=== PATIENT | male | born 1980 ===

== ENCOUNTER 2018-07-19 01:45 | Inpatient (IN) | payer OTHER ==
--- NOTE | 2018-07-19 02:27 | ED PDOC ---
HPI: Psych/Substance Abuse Time Seen by Provider: 07/19/18 02:00 Chief Complaint (Nursing): Psychiatric Evaluation Chief Complaint (Provider): Bipolar disorder History Per: EMS, Family History/Exam Limitations: clinical condition Additional Complaint(s): 37yo male, history of bipolar disorder, brought to ER by EMS for evaluation as patient noted to be agitated. Per EMS, patient's father reported patient was manic and has been non-compliant with his medication and has not been sleeping. Full HPI and ROS limited due to patient's presentation. Past Medical History Reviewed: Historical Data, Nursing Documentation, Vital Signs Vital Signs: Last Vital Signs Temp 98.2 F 07/19/18 01:57 Pulse 104 H 07/19/18 01:57 Resp 20 07/19/18 01:57 BP 176/105 H 07/19/18 01:57 Pulse Ox 99 07/19/18 01:57 - Medical History PMH: Bipolar Disorder - Surgical History Surgical History: No Surg Hx - Family History Family History: States: No Known Family Hx - Home Medications Home Medications: Ambulatory Orders Medication Instructions Recorded Levothyroxine Sodium [Unithroid] 50 mcg PO DAILY 07/19/18 [place] Carbonate [[place] 300 mg PO QID 07/19/18 Carbonate 300MG] Valproic Acid [Depakene] 250 mg PO QID 07/19/18 - Allergies Allergies/Adverse Reactions: Allergies Allergy/AdvReac Type Severity Reaction Status Date / Time No Known Allergies Allergy Verified 07/19/18 01:59 Review of Systems Review Of Systems: ROS cannot be obtained secondary to pt's inabilty to answer questions. Physical Exam - Reviewed Nursing Documentation Reviewed: Yes Vital Signs Reviewed: Yes - Physical Exam Head Exam: Positive for: ATRAUMATIC, NORMAL INSPECTION, NORMOCEPHALIC Skin: Positive for: Normal Color Eye Exam: Positive for: Normal appearance Neck: Positive for: Supple Cardiovascular/Chest: Positive for: Regular Rate, Rhythm, Tachycardia Respiratory: Positive for: Normal Breath Sounds Extremity: Positive for: Normal ROM. Negative for: Pedal Edema Neurologic/Psych: Positive for: Alert - Laboratory Results Result Diagrams: 07/19/18 03:01 07/19/18 03:01 - ECG O2 Sat by Pulse Oximetry: 99 (RA) Pulse Ox Interpretation: Normal Medical Decision Making Medical Decision Making: Impression: Psychiatric evaluation -- Patient noted to be aggressive and agitated; patient given Haldol 5mg IM and Ativan 2mg IM for agitation relief. Patient placed in 4-patient restraint due to possibility of harm to self/staff. 04:23 Labs reviewed and show no clinically significant abnormalities. 05:54 Chest x-ray reviewed with no active disease. 06:08 Patient with persistent agitation, Ativan 2mg IM given. Restraints orders renewed. 07:00 Patient signed out to Dr. Hall pending UDS, Urinalysis, and crisis evaluation. Scribe Attestation: Documented by Cheryl Woods, acting as a scribe for Raymond Park MD. Provider Scribe Attestation: All medical record entries made by the Scribe were at my direction and personally dictated by me. I have reviewed the chart and agree that the record accurately reflects my personal performance of the history, physical exam, medical decision making, and the department course for this patient. I have also personally directed, reviewed, and agree with the discharge instructions and disposition. Disposition - Patient ED Disposition Is Patient to be Admitted: Transfer of Care - Disposition Disposition: Transfer of Care Disposition Time: 07:00 Condition: STABLE Forms: [employer] (Algerian) Patient Signed Over To: Adrian Hall
[2018-07-19 03:05] LABS: BASO # 0.1 K/uL (0.0-0.2); BASO % 0.6 % (0.0-2.0); EOS % 0.3 % (0.0-4.0); LYMPH # 0.9 K/uL (1.0-4.3); LYMPH % 10.5 % (20.0-40.0); MEAN CELL VOLUME 87.3 fl (80.0-94.0); MEAN CORPUSCULAR HEMOGLOBIN 29.9 pg (27.0-31.0); MEAN CORPUSCULAR HGB CONC 34.3 g/dL (33.0-37.0); MEAN PLATELET VOLUME 9.3 fl (7.2-11.7); MONO # 0.6 K/uL (0.0-0.8); MONO % 7.2 % (0.0-10.0); NEUT # 7.1 K/uL (1.8-7.0); NEUT % 81.4 % (50.0-75.0); NRBC % 0.2 % (0.0-0.0); RBC 4.69 Mil/uL (4.40-5.90); RED CELL DISTRIBUTION WIDTH 14.7 % (11.5-14.5); WHITE BLOOD COUNT 8.7 K/uL (4.8-10.8)
[2018-07-19 03:13] LABS: ACETAMINOPHEN < 10.0 ug/ml (10.0-30.0); ALB/GLOB RATIO 1.3 (1.0-2.1); ALBUMIN 3.9 g/dL (3.5-5.0); ALT/SGPT 43 U/L (21-72); AST/SGOT 38 U/L (17-59); BLOOD UREA NITROGEN 19 mg/dl (9-20); CALCIUM 9.4 mg/dL (8.4-10.2); GFR NON-AFRICAN AMERICAN > 60; SALICYLATE < 1.0 mg/dl
--- NOTE | 2018-07-19 07:13 | ED PDOC ---
- Laboratory Results Result Diagrams: 07/19/18 03:01 07/19/18 03:01 - ECG O2 Sat by Pulse Oximetry: 99 (RA) Pulse Ox Interpretation: Normal Medical Decision Making Medical Decision Makin Patient endorsed to me by Dr. Park pending crisis evaluation. Medically stable for psychiatric admission Disposition - Clinical Impression Clinical Impression: Depression - POA Present On Arrival: None - Disposition Disposition: Admitted as In-Patient Disposition Time: 16:18 Condition: FAIR Forms: [employer] (Thai)
[2018-07-19 07:58] LABS: SQUAMOUS EPITHIAL < 1 /hpf (0-5); URINE BILIRUBIN NEGATIVE (NEGATIVE); URINE BLOOD NEGATIVE (NEGATIVE); URINE CLARITY CLEAR (Clear); URINE COLOR STRAW (YELLOW); URINE GLUCOSE (UA) NEG (Normal); URINE LEUKOCYTE ESTERASE NEG Leu/uL (Negative); URINE PROTEIN NEGATIVE (NEGATIVE); URINE UROBILINOGEN 0.2-1.0 mg/dL (0.2-1.0)
[2018-07-19 08:17] LABS: BARBITURATES, UR NEGATIVE (NEGATIVE); BENZODIAZEPINES, UR NEGATIVE (NEGATIVE); OPIATES, UR NEGATIVE (NEGATIVE); PHENCYCLIDINE, UR NEGATIVE (NEGATIVE)
--- NOTE | 2018-07-19 10:59 | RAD ---
Date of service: 07/19/2018 HISTORY: cough COMPARISON: Comparison made with prior study 07/19/2018. FINDINGS: LUNGS: Poor inspiration with low lung volumes, crowded bronchovascular markings and mild bibasilar atelectasis left greater than right.. Developing left lower lobe infiltrate could be excluded with followup radiographs. PLEURA: No significant pleural effusion identified, no pneumothorax apparent. CARDIOVASCULAR: Normal. OSSEOUS STRUCTURES: No significant abnormalities. VISUALIZED UPPER ABDOMEN: Normal. OTHER FINDINGS: None. IMPRESSION: Poor inspiration with low lung volumes, crowded bronchovascular markings and mild bibasilar atelectasis left greater than right.. Developing left lower lobe infiltrate could be excluded with followup radiographs.
--- NOTE | 2018-07-19 11:35 | RAD ---
Date of service: 07/19/2018 HISTORY: clearance COMPARISON: No prior. FINDINGS: LUNGS: No active pulmonary disease. PLEURA: No significant pleural effusion identified, no pneumothorax apparent. CARDIOVASCULAR: Normal. OSSEOUS STRUCTURES: No significant abnormalities. VISUALIZED UPPER ABDOMEN: Normal. OTHER FINDINGS: None. IMPRESSION: No active disease.
--- NOTE | 2018-07-19 13:53 | CARD ---
APPROVED REPORT Date of service: 07/19/2018 EKG Measurement Heart [id number] <Conclusion> Normal sinus rhythm with sinus arrhythmia otherwise normal ECG
[2018-07-19 16:50] VITALS: O2SAT 98
[2018-07-19] MEDS ORDERED: Magnesium Hydroxide Susp 30 ml UD PO PRN (18:37)
[2018-07-19] MEDS ORDERED: Alum-Mag Hydrox-Simethicone Susp (30 mL) PO PRN (18:37)
[2018-07-19] MEDS ORDERED: DiphenhydrAMINE 50 mg/ml Inj IM PRN (18:37)
[2018-07-19] MEDS: Divalproex 500 mg DR(BID formulation) PO SCH (21:05)
[2018-07-20] MEDS: Levothyroxine 50 MCG TAB PO SCH (05:43)
[2018-07-20 08:47] LABS: T4 5.67 ug/dl (5.5-11.0)
--- NOTE | 2018-07-20 12:51 | PCM.PSYCH ---
Initial Psychiatric Evaluation - Initial Psychiatric Evaluation Type of Admission: Voluntary Legal Status: Capacity Chief Complaint (in patient's own words): Acute louis/ paranoia; "My life is like a movie, look for me on youtube." Patient's Reaction to Hospitalization: HPI: 37 yo male/ w/ h/o Bipolar disorder, referred by [facility], for worsening louis, disorganized speech/thoughts and paranoia. Patient is a poor historian at this time due to acute disorganization and his insistence on discussing his paranoid ideations, including that he can't use his name because of something that is on youtube, his belief that drug traffickers in [facility] have killed his family members, that his family wants him to take psychiatric medications so they can take his money and grandiose beliefs that he is connected with important people such a Arlene and J Lety. He denied AH/VH/SI/ HI. He was tearful and labile on interview. 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; denies drugs/etoh/cig use Current Medications: Active Medications Generic Name Dose Route Start Last Admin Trade Name Freq PRN Reason Stop Dose Admin Acetaminophen 650 mg 07/19/18 18:37 Tylenol 325mg Tab PO Q4 PRN Pain, moderate (4-7) Al Hydrox/Mg Hydrox/Simethicone 30 ml 07/19/18 18:37 Maalox Plus 30 Ml PO Q4 PRN Dyspepsia Diphenhydramine HCl 50 mg 07/19/18 18:37 Benadryl IM Q6 PRN Extrapyramidal S/S Unable PO Diphenhydramine HCl 50 mg 07/19/18 18:37 Benadryl PO Q6 PRN Extrapyramidal Symptoms Divalproex Sodium 500 mg 07/21/18 09:00 Fermin Quinones(*Bid*) PO DAILY [place] Divalproex Sodium 750 mg 07/20/18 17:00 Fermin Quinones(*Bid*) PO DAILY@1700 [place] Haloperidol 5 mg 07/19/18 18:37 Haldol PO Q4 PRN Agitation Haloperidol Lactate 5 mg 07/19/18 18:37 Haldol IM Q4 PRN Agitation, Unable to Take PO Levothyroxine Sodium 50 mcg 07/20/18 06:30 07/20/18 05:43 Synthroid PO 50 mcg DAILY@0630 [place] Administration Lorazepam 2 mg 07/19/18 18:37 07/19/18 23:34 Ativan PO 2 mg Q4 PRN Administration Anxiety/Agitation Magnesium Hydroxide 30 ml 07/19/18 18:37 Milk Of Magnesia PO HS PRN Constipation Risperidone 1 mg 07/20/18 21:00 Risperdal M-Tab PO Q12 [place] Past Psychiatric History - Past Psychiatric History Previous Treatment History: Inpatient Pertinent Medical Hx (Current Medical&Sleep Prob, Allergies): Allergies Allergy/AdvReac Type Severity Reaction Status Date / Time No Known Allergies Allergy Verified 07/19/18 01:59 Levothyroxine Sodium [Unithroid] 50 mcg PO DAILY 07/19/18 [place] Carbonate [[place] Carbonate 300MG] 300 mg PO QID 07/19/18 Valproic Acid [Depakene] 250 mg PO QID 07/19/18 Review of Systems - Psychiatric Psychiatric: As Per HPI, Abnormal Sleep Pattern, Anxiety, Behavioral Changes, Change in Appetite, Depression, Difficulty Concentrating Mental Status Examination - Personal Presentation Personal Presentation: Looks stated age - Affect Affect: Other (Labile) - Motor Activity Motor Activity: Psychomotor Agitation - Reliability in Providing Information Reliability in Providing Information: Poor, due to alteration in thoughts - Speech Speech: Disorganized, Irrelevant, Tangential - Mood Mood: Euphoric - Formal Thought Process Formal Thought Process: Delusions, Paranoia, Loosening of associations, Flight of ideas, Circumstantial - Hallucinations/Delusions Additional comments: Denies AH/VH - Obsessions/Compulsions Obsessions: No Compulsions: No - Cognitive Functions Orientation: Person, Place, Situation, Time Sensorium: Alert Attention/Concentration: Attentive Estimate of Intelligence: Average Judgement: Imparied, as evidence by: Poor judgement, Imparied, as evidence by: Lack of insight into illness Memory: Recent impaired, as evidenced by: Other (Poor memory due to acute disorganization) - Risk Risk: Diminished functioning - Strength & Assets Inventory Strength & Assets Inventory: Family support DSM 5 DX - DSM 5 DSM 5 Diagnosis: Bipolar Disorder w/ Psychotic Features vs Schizoaffective Disorder - Recommended/Plan of Treatment Treatment Recommendations and Plan of Treatment: Bipolar Disorder w/ Psychotic Features vs Schizoaffective Disorder -Admit to psychiatry unit -Start Depakote and Risperdal -Individual and group therapy -Medicine consult -Obtain collateral history -Disposition planning Projected ELOS: 7-10 days Discharge Plan and Discharge Criteria: Discharge when patient is psychiatrically stable - Smoking Cessation Smoking Cessation Initiated: No Reason for not providing: Not indicated
[2018-07-20] MEDS: Divalproex 500 mg DR(BID formulation) PO SCH ×3 (12:57→21:45)
--- NOTE | 2018-07-20 13:43 | CP.PCM.CON ---
History of Present Illness - History of Present Illness History of Present Illness: Reason for Consult: per hospital protocol HPI: 37 year old male PMH bipolar disorder, noncomplaint with medications, does not admit to any other chronic medical issues, is admitted to psych for bipolar disorder with psychotic features. HD stable, no acute distress. ROS: per HPI all other systems reviewed and negative. Past Patient History - Past Social History Smoking Status: Never Smoked - CARDIAC Hx Cardiac Disorders: No - PULMONARY Hx Tuberculosis: No - NEUROLOGICAL HX Cerebrovascular Accident: No Hx Seizures: No - ENDOCRINE/METABOLIC Hx Hyperthyroidism: Yes - HEMATOLOGICAL/ONCOLOGICAL Hx Cancer: No Hx Human Immunodeficiency Virus (HIV): No - GENITOURINARY/GYNECOLOGICAL Hx Sexually Transmitted Disorders: No - PSYCHIATRIC Hx Anxiety: Yes Hx Bipolar Disorder: Yes Hx Depression: Yes Hx Substance Use: No Meds Allergies/Adverse Reactions: Allergies Allergy/AdvReac Type Severity Reaction Status Date / Time No Known Allergies Allergy Verified 07/19/18 01:59 - Medications Medications: Current Medications Acetaminophen (Tylenol 325mg Tab) 650 mg PO Q4 PRN PRN Reason: Pain, moderate (4-7) Al Hydrox/Mg Hydrox/Simethicone (Maalox Plus 30 Ml) 30 ml PO Q4 PRN PRN Reason: Dyspepsia Diphenhydramine HCl (Benadryl) 50 mg IM Q6 PRN PRN Reason: Extrapyramidal S/S Unable PO Diphenhydramine HCl (Benadryl) 50 mg PO Q6 PRN PRN Reason: Extrapyramidal Symptoms Divalproex Sodium (Depakote Dr(*Bid*)) 500 mg PO DAILY [facility] Divalproex Sodium (Depakote Dr(*Bid*)) 750 mg PO DAILY@1700 [facility] Haloperidol (Haldol) 5 mg PO Q4 PRN PRN Reason: Agitation Haloperidol Lactate (Haldol) 5 mg IM Q4 PRN PRN Reason: Agitation, Unable to Take PO Levothyroxine Sodium (Synthroid) 50 mcg PO DAILY@0630 [facility] Last Admin: 07/20/18 05:43 Dose: 50 mcg Lorazepam (Ativan) 2 mg PO Q4 PRN PRN Reason: Anxiety/Agitation Last Admin: 07/19/18 23:34 Dose: 2 mg Magnesium Hydroxide (Milk Of Magnesia) 30 ml PO HS PRN PRN Reason: Constipation Risperidone (Risperdal M-Tab) 1 mg PO Q12 [place] Physical Exam - Constitutional Appears: Well, Non-toxic - Head Exam Head Exam: ATRAUMATIC, NORMAL INSPECTION, NORMOCEPHALIC - Eye Exam Eye Exam: EOMI, Normal appearance, PERRL Pupil Exam: NORMAL ACCOMODATION, PERRL - ENT Exam ENT Exam: Mucous Membranes Moist, Normal Exam - Neck Exam Neck exam: Positive for: Full Rom, Normal Inspection - Respiratory Exam Respiratory Exam: Clear to Auscultation Bilateral, NORMAL BREATHING PATTERN - Cardiovascular Exam Cardiovascular Exam: REGULAR RHYTHM, RRR, +S1, +S2 - GI/Abdominal Exam GI & Abdominal Exam: Normal Bowel Sounds, Soft. absent: Tenderness - Extremities Exam Extremities exam: Positive for: normal capillary refill, pedal pulses present - Back Exam Back exam: absent: CVA tenderness (L), CVA tenderness (R) - Neurological Exam Neurological exam: Alert, Reflexes Normal - Psychiatric Exam Psychiatric exam: Normal Affect, Normal Mood - Skin Skin Exam: Dry, Warm Results - Vital Signs Recent Vital Signs: Last Vital Signs Temp 96.4 F L 07/20/18 09:00 Pulse 87 07/20/18 09:00 Resp 18 07/20/18 09:00 BP 130/94 H 07/20/18 09:00 Pulse Ox 98 07/19/18 16:49 - Labs Result Diagrams: 07/19/18 03:01 07/19/18 03:01 Labs: Laboratory Results - last 24 hr 07/20/18 06:30 Triglycerides 81 Cholesterol 182 LDL Cholesterol Direct 104 HDL Cholesterol 48 Thyroxine (T4) 5.67 TSH 3rd Generation 19.10 H Assessment & Plan - Assessment and Plan (Free Text) Plan: 37 year old male PMH bipolar disorder, noncomplaint with medications, does not admit to any other chronic medical issues, is admitted to psych for bipolar disorder with psychotic features. HD stable, no acute distress. Bipolar I with psychotic features - management per psychiatry team
[2018-07-20] MEDS: guaiFENesin 200 mg/10 ml Syrup UD PO PRN (17:02)
[2018-07-20] MEDS: Divalproex 250 mg DR(BID formulation) PO SCH (17:04)
--- NOTE | 2018-07-20 19:33 | PCM.BM ---
<Herbert Brandon - Last Filed: 07/20/18 19:31> Treatment Plan Problems - Problems identified on initial assessmt Hopelessness/Helplessness Date Initiated: 07/20/18 Time Initiated: 19:00 Assessment reference: BASILIA Treatment assets and liabiliti Patient Assests: adapts well, cooperative, ADL independent, physically healthy Patient Liabilities: poor support system - Milieu Protocol Maintain good personal hygiene: every shift Encourage regular showers, every shift Remind patient to perform daily oral care, every shift Assist patient to perform ADL's Maintain personal safety: every shift Educate patient to report safety concerns to staff, every shift Monitor environment for contraband/sharps Medication safety: Monitor for expected outcome, potential side effects: every shift, Assess barriers to learning: every shift, Assess readiness for medication education: every shift Milieu Narrative: Bipolar Disorder w/ Psychotic Features vs Schizoaffective Disorder -Admit to psychiatry unit -Start Depakote and Risperdal -Individual and group therapy -Medicine consult -Obtain collateral history -Disposition planning Discharge/Continuing Care - Treatment Team Participation Patient/Family/SO Statement: Bipolar Disorder w/ Psychotic Features vs Schizoaffective Disorder -Admit to psychiatry unit -Start Depakote and Risperdal -Individual and group therapy -Medicine consult -Obtain collateral history -Disposition planning <Brandee Lujan - Last Filed: 07/23/18 14:03> - Diagnosis (1) Loius Status: Acute Interventions: pharmacotherapy psychotherapy 07/22/18 14:27 <Farzana Quispe - Last Filed: 07/25/18 14:59> Treatment assets and liabiliti Patient Assests: adapts well, cooperative, insightful, motivated, resourceful, self-reliant, ADL independent, physically healthy, good support system, negotiates basic needs, good past tx response, cognitively intact, good interpersonal skills Family Contact Family involvement: Family/SO is involved Family contact: Patient agrees to contact, Family has been contacted by patient, Telephone contact initiated by staff Family contact comment: Genetic Supervisor placed call to pts father (Moise [phone]) on 07/25 to discuss pts progress on 3NP and anticipated discharge. Genetic Supervisor provided clinical updates regarding pts progress and emphasized importance of continued adherence with aftercare. Pts father expressed understanding of the above and denies having any concerns regarding pts discharge. Patient to contact father from payphone when ready to be picked-up. Staff notified. - Goals for Treatment Patient goals for treatment: Patient to continue stabilization on 3NP through medication management and group/supportive therapy to address sxs of louis as exhibited by restlessness, racing thoughs and poor sleep. Patient to be encouraged to attend groups regularly to promote self-awareness, self-esteem, and improve insight, compliance, and coping skills. Patient to be provided with referral for appropriate level of aftercare to reduce risk of future hospitalizations and ensure safety in the community. Discharge/Continuing Care - Education Needs Education Needs: Family Medication, Family Coping Skills, Family Aftercare Safety Plan, Patient Medication, Patient Diagnosis/Disease Process, Patient Coping Skills, Patient Anger Management skills, Patient Community resources, Patient Aftercare Safety Plan - Discharge Discharge Criteria: Tolerates medication w/o severe side effects, Normal sleep pattern, Ability to care for self, Reduction of target symptoms Discharge to:: Home, With Family, Other ([facility]) - Treatment Team Participation Discussed with Family/SO: Yes Was Patient/Family/SO present at Treatment Team Meeting: Yes
[2018-07-20] MEDS: Risperidone M tab 1 MG PO SCH (21:44)
[2018-07-21] MEDS: Levothyroxine 50 MCG TAB PO SCH (06:25)
[2018-07-21] MEDS: Divalproex 500 mg DR(BID formulation) PO SCH (09:00)
[2018-07-21] MEDS: Risperidone M tab 1 MG PO SCH ×2 (09:00→21:19)
--- NOTE | 2018-07-21 10:23 | PCM.PYCHPN ---
Psychiatric Progress Note - Psychiatric Progress Note Patient seen today, length of contact: Pt evaluated, case discussed w/ team, chart reviewed Patient Chief Complaint: Acute louis/ paranoia Problems Identified/Issues Discussed: Patient continues to be manic, w/ pressured speech, psychomotor agitation and disorganized thought process and paranoia. He could not sit down during the interview w/ the mortgage underwriter and was pacing the room, acting out how [place] are different than Americans. He has poor insight and judgment, states he feels "super" and does not believe he needs to be in the hospital. Medication Change: Yes (Increase Risperdal) Medical Record Reviewed: Yes Consults ordered or reviewed: Medicine consult Mental Status Examination - Cognitive Function Orientation: Person, Place, Situation, Time Memory: Intact Attention: Poor Concentration: Poor Association: Loose Decription of patient's judgement and insights: Poor I/J - Mood Mood: Euphoric - Affect Affect: Other (Labile) - Speech Speech: Pressured - Formal Thought Process Formal Thought Process: Delusions, Paranoia, Loosening of associations, Flight of ideas, Circumstantial Psychotic Thoughts and Behaviors: +Paranoia - Suicidal Ideation Suicidal Ideation: No - Homicidal Ideation Homicidal Ideation: No Goal/Treatment Plan - Goal/Treatment Plan Need for Continued Stay: Remain at risks for inpatient hospitalization, Discharge may exacerbated symptoms Progress Toward Problem(s) and Goals/Treatment Plan: Bipolar Disorder w/ Psychotic Features vs Schizoaffective Disorder -Continue Depakote and Risperdal -Individual and group therapy -Medicine consult -Obtain collateral history -Disposition planning Estimated Date of D/C: 07/26/18
[2018-07-21] MEDS: guaiFENesin 200 mg/10 ml Syrup UD PO PRN ×2 (11:14→17:00)
[2018-07-21] MEDS: Divalproex 250 mg DR(BID formulation) PO SCH (17:00)
[2018-07-22] MEDS: Levothyroxine 50 MCG TAB PO SCH (06:39)
[2018-07-22] MEDS: Divalproex 500 mg DR(BID formulation) PO SCH ×2 (08:52→21:01)
[2018-07-22] MEDS: Risperidone M tab 1 MG PO SCH ×2 (08:52→21:01)
--- NOTE | 2018-07-22 15:01 | PCM.PYCHPN ---
Psychiatric Progress Note - Psychiatric Progress Note Patient seen today, length of contact: Pt evaluated, case discussed w/ team, chart reviewed Patient Chief Complaint: If I do not sleep I become sick Problems Identified/Issues Discussed: pt evaluated with treatment team , presentic with elevated mood, overproductive speech , continues to be hypomanic with increased energy, observed pacing in the hallway, pt has been requesting discharge, discussed the need to increase depakote and to follow up on depakote level, encouraged pt to attend groups, pt denied any current suicidal or homicidal ideation, denied perceptual disturbances , no reported side effects of medications DSM 5 Symptoms Update: bipolar I disorder MRE manic severe Medication Change: Yes (increase depakote) Medical Record Reviewed: Yes Mental Status Examination - Cognitive Function Orientation: Person, Place, Situation, Time Memory: Intact Attention: WNL Concentration: WNL Association: WNL Fund of Knowledge: WNL Decription of patient's judgement and insights: partial insight and fair judgment - Mood Mood: Euphoric - Affect Affect: Broad, Other (Labile) - Speech Speech: Loud, Pressured - Formal Thought Process Formal Thought Process: Paranoia, Circumstantial - Suicidal Ideation Suicidal Ideation: No - Homicidal Ideation Homicidal Ideation: No Goal/Treatment Plan - Goal/Treatment Plan Need for Continued Stay: Remain at risks for inpatient hospitalization, Discharge may exacerbated symptoms Progress Toward Problem(s) and Goals/Treatment Plan: increase depakote to 1500mg daily , follow up on depakote level continue with risperidone CBT group and supportive therapy Estimated Date of D/C: 07/26/18
[2018-07-23] MEDS: Levothyroxine 50 MCG TAB PO SCH (06:35)
--- NOTE | 2018-07-23 14:13 | PCM.PYCHPN ---
Psychiatric Progress Note - Psychiatric Progress Note Patient seen today, length of contact: Pt evaluated, case discussed w/ team, chart reviewed Patient Chief Complaint: I am feeling better Problems Identified/Issues Discussed: pt evaluated , pleasant, cooperative , speech less pressured, continues to have increased energy and increase goal directed activities , reported improved sleep with the increase in depakote , no reported side effects of medications, requ esting referral to therapy on discharge pt denied any current suicidal or homicidal ideation, denied perceptual disturbances , no psychotic symptoms elicited ,no reported side effects of medications DSM 5 Symptoms Update: bipolar I disorder manic severe Medication Change: No (increase depakote) Medical Record Reviewed: Yes Mental Status Examination - Cognitive Function Orientation: Person, Place, Situation, Time Memory: Intact Attention: WNL Concentration: WNL Association: WNL Fund of Knowledge: [facility] Decription of patient's judgement and insights: partial insight and fair judgment - Mood Mood: Euphoric - Affect Affect: Broad, Other (Labile) - Speech Speech: Loud, Pressured - Formal Thought Process Formal Thought Process: Circumstantial Psychotic Thoughts and Behaviors: pt denied perceptual disturbances, non elicited - Suicidal Ideation Suicidal Ideation: No - Homicidal Ideation Homicidal Ideation: No Goal/Treatment Plan - Goal/Treatment Plan Need for Continued Stay: Remain at risks for inpatient hospitalization, Discharge may exacerbated symptoms Progress Toward Problem(s) and Goals/Treatment Plan: continue depakote 1500mg daily , follow up on depakote level continue with risperidone 1 mg bid CBT group and supportive therapy Estimated Date of D/C: 07/26/18
[2018-07-23] MEDS: Risperidone M tab 1 MG PO SCH (21:27)
[2018-07-23] MEDS: Divalproex 500 mg DR(BID formulation) PO SCH (21:27)
[2018-07-24] MEDS: Levothyroxine 50 MCG TAB PO SCH (06:32)
[2018-07-24] MEDS: Divalproex 500 mg DR(BID formulation) PO SCH ×3 (08:38→21:11)
[2018-07-24] MEDS: Risperidone M tab 1 MG PO SCH ×2 (08:39→21:11)
[2018-07-24] MEDS: guaiFENesin DM 200 mg-20 mg/10 ml UD PO PRN ×2 (08:40→21:34)
--- NOTE | 2018-07-24 18:51 | PCM.PYCHPN ---
Psychiatric Progress Note - Psychiatric Progress Note Patient seen today, length of contact: Pt evaluated, case discussed w/ team, chart reviewed Patient Chief Complaint: I am feeling better Problems Identified/Issues Discussed: pt evaluated ,reported mood better, affect less labile , speech less pressured, , reported improved sleep , no reported side effects with the increase in depakote , pt denied any current suicidal or homicidal ideation, denied perceptual disturbances , no psychotic symptoms elicited , DSM 5 Symptoms Update: bipolar I disorder MRE manic severe Medication Change: No Medical Record Reviewed: Yes Mental Status Examination - Cognitive Function Orientation: Person, Place, Situation, Time Memory: Intact Attention: WNL Concentration: WNL Association: [facility] Fund of Knowledge: [facility] Decription of patient's judgement and insights: partial insight and fair judgment - Mood Mood: Euphoric - Affect Affect: Broad, Other (Labile) - Speech Speech: Loud, Pressured - Formal Thought Process Formal Thought Process: Circumstantial Psychotic Thoughts and Behaviors: pt denied perceptual disturbances, non elicited - Suicidal Ideation Suicidal Ideation: No - Homicidal Ideation Homicidal Ideation: No Goal/Treatment Plan - Goal/Treatment Plan Need for Continued Stay: Remain at risks for inpatient hospitalization, Discharge may exacerbated symptoms Progress Toward Problem(s) and Goals/Treatment Plan: continue depakote 1500mg daily , follow up on depakote level continue with risperidone 1 mg bid CBT group and supportive therapy Estimated Date of D/C: 07/26/18
[2018-07-25] MEDS: Levothyroxine 50 MCG TAB PO SCH (06:54)
[2018-07-25] MEDS: Risperidone M tab 1 MG PO SCH (08:44)
[2018-07-25] MEDS: Divalproex 500 mg DR(BID formulation) PO SCH (08:45)
[2018-07-25 09:28] VITALS: BP 129/83; PULSE 95; RESP 20; TEMP 97.1
== END 2018-07-25 16:36 | disposition home or self-care (01) | DRG 885 ==
LOC: H.ER 01:45 → H.ERHOLD 16:19 → H.PSYCH 17:18
PROVIDERS: ADMIT Psychiatry & Neurology Psychiatry; ATTEND Psychiatry & Neurology Psychiatry
PROC: GZHZZZZ Group Psychotherapy (ICD-10-PCS; principal; 2018-07-19)
PROC: GZ58ZZZ Individual Psychotherapy, Cognitive-Behavioral (ICD-10-PCS; 2018-07-19)
DX: F31.2 Bipolar disorder, current episode manic severe with psychotic features (principal); F41.9 Anxiety disorder, unspecified; Z91.14 Patient's other noncompliance with medication regimen; E05.90 Thyrotoxicosis, unspecified without thyrotoxic crisis or storm